=== PATIENT | female | born 1940 | race Caucasian/White ===

== ENCOUNTER → 2016-11-15 | Outpatient (CLI) | payer OTHER | LOC: BMCIMAGING 13:12 | PROVIDERS: ATTEND Internal Medicine | DX: Z12.39 Encounter for other screening for malignant neoplasm of breast (principal); N64.4 Mastodynia | CPT/HCPCS: 76641; G0204 ==

== ENCOUNTER → 2017-07-29 | Outpatient (CLI) | payer OTHER | LOC: FIMAGING 09:04 | PROVIDERS: ATTEND Surgery | DX: K22.2 Esophageal obstruction (principal); K44.9 Diaphragmatic hernia without obstruction or gangrene; K21.9 Gastro-esophageal reflux disease without esophagitis ==

== ENCOUNTER → 2017-11-06 | Outpatient (CLI) | payer OTHER | LOC: FIMAGING 15:16 | PROVIDERS: ATTEND Internal Medicine | DX: I65.23 Occlusion and stenosis of bilateral carotid arteries (principal) ==

== ENCOUNTER 2017-11-19 10:27 | Emergency (ER) | payer OTHER ==
--- NOTE | 2017-11-19 10:39 | EDPHY ---
H & P Stated Complaint: Episodic chest pressure Time Seen by Provider: 11/19/17 10:39 HPI/ROS: CHIEF COMPLAINT: Episodic chest pressure HISTORY OF PRESENT ILLNESS: The patient is referred to the ED from her neurologist office for evaluation of 2 episodes of chest pressure that have recurred over the past several weeks. The patient is approximately 1 month status post Julianne fundoplication. She reports postoperatively she has had 2 bouts of chest pressure which she has attributed to "gas." She describes it as a band like pain across her lower chest wall with some radiation into her neck. It occurred without exertion on at least 2 events. The patient last experience this 2 days ago. The patient denies any pleuritic chest pain, asymmetric calf pain or swelling or additional complaints. The patient has been complaining of some esophageal pressure since her surgery. REVIEW OF SYSTEMS: A comprehensive 10 point review of systems is otherwise negative aside from elements mentioned in the history of present illness. Source: Patient Exam Limitations: No limitations - Personal History Current Tetanus/Diphtheria Vaccine: Yes Current Tetanus Diphtheria and Acellular Pertussis (TDAP): Yes - Medical/Surgical History Hx Asthma: No Hx Chronic Respiratory Disease: No Hx Diabetes: No Hx Cardiac Disease: No Hx Renal Disease: No Hx Cirrhosis: No Hx Alcoholism: No Hx HIV/AIDS: No Hx Splenectomy or Spleen Trauma: No Other PMH: HTN, hypothryoid, tinnitis, fundoplication, hiatal hernia - Social History Smoking Status: Never smoked - Physical Exam Exam: General Appearance: Alert, no distress Eyes: Pupils equal and round no pallor or injection ENT, Mouth: Mucous membranes moist Respiratory: There are no retractions, lungs are clear to auscultation Cardiovascular: Regular rate and rhythm Gastrointestinal: Abdomen is soft and nontender, no masses, bowel sounds normal Neurological: 5/5 strength all 4 extremities Skin: Warm and dry, no rashes Musculoskeletal: Neck is supple nontender Extremities: symmetrical, full range of motion Constitutional: Initial Vital Signs Temperature (C) 36.9 C 11/19/17 10:34 Heart Rate 65 11/19/17 10:34 Respiratory Rate 16 11/19/17 10:34 Blood Pressure 208/96 H 11/19/17 10:34 O2 Sat (%) 96 11/19/17 10:34 O2 Delivery Mode Room Air Allergies/Adverse Reactions: morphine [Morphine] Allergy (Intermediate, Verified 03/08/16 15:02) BODY SHAKES Penicillins Allergy (Verified 03/08/16 15:02) Home Medications: Medication Instructions Recorded Aspirin EC [Aspirin EC 81 mg (OTC)] 11/25/13 Levothyroxine [Synthroid 75 mcg 11/25/13 (RX)] Crestor 11/19/17 Nortriptyline HCl 11/19/17 Medical Decision Making - Diagnostics Imaging Results: Chest x-ray PA/lateral images: Images reviewed by myself, negative for acute disease. Formal interpretation pending by Radiology. ED Course/Re-evaluation: The patient presents to the ED for evaluation of chest pressure which is recurred twice over the past month since her Julianne fundoplication. It is nonexertional chest pain. She is asymptomatic in the emergency department. She was hypertensive upon arrival however corrected to a blood pressure of 150/ 90 without intervention in the ED. The patient's EKG demonstrates no evidence of ischemia. The patient's troponin is normal. Her chest x-ray demonstrates no evidence of acute disease. She currently has no complaints of chest pain, shortness of breath pleuritic chest pain or any physical exam findings suggestive of DVT. At this point time I do feel the patient can be discharged home. I would like her to follow up with her primary care provider for a blood pressure recheck in the week. She has been advised to return to the ED for a recurrent bout of severe chest pain. Differential Diagnosis: Differential diagnosis considered includes acute coronary syndrome, aortic dissection, esophageal spasm, surgical complication - Data Points Laboratory Results: Laboratory Results 11/19/17 11:15 11/19/17 11:15 11/19/17 11/19/17 11:15 11:15 WBC 6.10 10^3/uL 10^3/uL (3.80-9.50) RBC 4.67 10^6/uL 10^6/uL (4.18-5.33) Hgb 13.4 g/dL g/dL (12.6-16.3) Hct 41.2 % % (38.0-47.0) MCV 88.2 fL fL (81.5-99.8) MCH 28.7 pg pg (27.9-34.1) MCHC 32.5 g/dL g/dL (32.4-36.7) RDW 14.0 % % (11.5-15.2) Plt Count 161 10^3/uL 10^3/uL (150-400) MPV 12.0 fL H fL (8.7-11.7) Neut % (Auto) 49.2 % % (39.3-74.2) Lymph % (Auto) 36.7 % % (15.0-45.0) Hayes % (Auto) 7.0 % % (4.5-13.0) Eos % (Auto) 5.9 % % (0.6-7.6) Baso % (Auto) 1.0 % % (0.3-1.7) Nucleat RBC Rel Count 0.0 % % (0.0-0.2) Absolute Neuts (auto) 3.00 10^3/uL 10^3/uL (1.70-6.50) Absolute Lymphs (auto) 2.24 10^3/uL 10^3/uL (1.00-3.00) Absolute Monos (auto) 0.43 10^3/uL 10^3/uL (0.30-0.80) Absolute Eos (auto) 0.36 10^3/uL 10^3/uL (0.03-0.40) Absolute Basos (auto) 0.06 10^3/uL 10^3/uL (0.02-0.10) Absolute Nucleated RBC 0.00 10^3/uL 10^3/uL (0-0.01) Immature Gran % 0.2 % % (0.0-1.1) Immature Gran # 0.01 10^3/uL 10^3/uL (0.00-0.10) Sodium 143 mEq/L mEq/L (135-145) Potassium 4.1 mEq/L mEq/L (3.5-5.2) Chloride 104 mEq/L mEq/L (97-110) Carbon Dioxide 28 mEq/l mEq/l (22-31) Anion Gap 11 mEq/L mEq/L (8-16) BUN 18 mg/dL mg/dL (7-23) Creatinine 0.7 mg/dL mg/dL (0.6-1.0) Estimated GFR > 60 Glucose 80 mg/dL mg/dL (70-100) Calcium 9.9 mg/dL mg/dL (8.5-10.4) Troponin I < 0.012 ng/mL ng/mL (0.000-0.034) Departure - Departure Disposition: Home, Routine, Self-Care Clinical Impression: Chest pain, Hypertension Condition: Good Instructions: Chest Pain (ED) Additional Instructions: 1. Please schedule a follow-up appointment with Dr. Chery to have a blood pressure recheck in the next week and to discuss possible referral to Cardiology. 2. Return to the ED immediately for any recurrent chest pain, difficulty breathing or other concerns. Referrals: Judy Chery MD [Primary Care Provider] - As per Instructions
--- NOTE | 2017-11-19 11:03 | CPEKG ---
Heart Rate: 59 RR Interval: 1017 P-R Interval: 152 QRSD Interval: 118 QT Interval: 440 QTC Interval: 436 P [place]: 61 QRS [place]: -33 T Wave [place]: 84 EKG Severity - ABNORMAL ECG - EKG Impression: SINUS RHYTHM EKG Impression: INCOMPLETE LEFT BUNDLE BRANCH BLOCK EKG Impression: LEFT VENTRICULAR HYPERTROPHY Electronically Signed By: Tano Castillo 19-Nov-2017 12:51:47
[2017-11-19 11:25] LABS: PLATELET COUNT 161 10^3/uL (150-400)
[2017-11-19 12:12] VITALS: BP 138/83
== END 2017-11-19 12:21 | disposition home or self-care (01) ==
DX: R07.9 Chest pain, unspecified (principal); I10 Essential (primary) hypertension; Z79.82 Long term (current) use of aspirin

== ENCOUNTER → 2018-01-06 | Outpatient (CLI) | payer OTHER | LOC: BMCIMAGING 14:25 | PROVIDERS: ATTEND Internal Medicine | DX: Z12.31 Encounter for screening mammogram for malignant neoplasm of breast (principal) ==